=== PATIENT | female | born 1990 | race Hispanic/Latino ===

== ENCOUNTER 2019-02-10 04:09 | Inpatient (IN) | payer BC ==
[2019-02-10] MEDS ORDERED: Ringers Lactate 1,000 ML IV PRN (04:11)
[2019-02-10] MEDS ORDERED: PROMETHAZINE 25 MG/ML VIAL IM PRN (04:11)
[2019-02-10] MEDS ORDERED: METHYLERGONOVINE 0.2MG/ML AMP IM PRN (04:11)
[2019-02-10] MEDS ORDERED: BUTORPHANOL 1 MG/ML INJ IV PRN (04:11)
[2019-02-10] MEDS ORDERED: CARBOPROST TROME 250 MCG/ML IM PRN (04:11)
[2019-02-10] MEDS ORDERED: MEPERIDINE HCL 25 MG/0.5 ML IV PRN (04:11)
[2019-02-10 04:38] VITALS: BMI 34.0
[2019-02-10] MEDS ORDERED: OXYTOCIN/LR 20 UNIT/1,000 ML BAG IV SCH ×2 (05:00→11:00)
[2019-02-10] MEDS ORDERED: Ringers Lactate 1,000 ML IV SCH (05:00)
[2019-02-10 05:07] LABS: Absolute Lymphocytes (CBC) 2.8 K/uL (0.7-4.9); Basophils % 0.6 % (0-1.3); Hematocrit 35.5 % (36.0-45.0); Lymphocytes % 31.6 % (15.3-44.8)
[2019-02-10 05:13] LABS: Urine Appearance CLEAR; Urine Bilirubin NEGATIVE (NEG); Urine Blood NEGATIVE (NEG); Urine Color YELLOW; Urine Glucose NEGATIVE (NEG); Urine Protein NEGATIVE (NEG); Urine Specific Gravity 1.015 (1.005-1.030); Urine pH 7.5 (5.0-7.0)
[2019-02-10 05:42] LABS: Urine Bacteria <20 /HPF (<20); Urine Culture Reflex Order REFLEXED; Urine RBC NONE SEEN /HPF (NONE SEEN)
[2019-02-10] MEDS ORDERED: LIDOCAINE 1% 20 ML MDV ONE (10:10)
[2019-02-10] MEDS ORDERED: ACETAMINOPHEN 500 MG TAB PO PRN (10:42)
[2019-02-10] MEDS ORDERED: BISACODYL 10 MG RECTAL SUPP RECT PRN (10:42)
[2019-02-10] MEDS ORDERED: IBUPROFEN 200 MG TAB PO PRN (10:42)
[2019-02-10] MEDS ORDERED: DIPHENHYDRAMINE 25 MG TAB/CAP PO PRN (10:42)
[2019-02-10] MEDS ORDERED: Oxycodone HCl/Acetaminophen 1 TAB TAB PO PRN ×2 (10:42)
[2019-02-10] MEDS ORDERED: DOCUSATE NA/SENNA CONC 1 TAB PO PRN (10:42)
--- NOTE | 2019-02-10 22:33 | OP ---
Surgeon: Jose Sin MD A 28-year-old, 3, para 1, 39 weeks, 3 cm this morning, quan regularly. Baby at -2 sta tion. Patient went natural. Did receive 1 dose of Stadol during the labor. After achieving 5 to 6 cm, went rapidly to complete second stage of 10 minutes or less. Spontaneous vaginal delivery of a 7 pounds 1 ounce female, Apgars 9 and 9. Two very small first-degree lacerations, 1 on 1 stitch on th e patient's right 3-0 chromic, 2 on the left 3-0 chromic local infiltration. Schultze delivery of th e placenta was inspected and noted to be intact and normal. Minimal blood loss less than 50 mL at th is point. Rh positive, immune to Rubella. Negative beta strep screen. Final Diagnoses: Term intrauterine at 39 weeks. Vaginal delivery. LISSETH/CHAVA Voice ID: [id number] Report ID: [id number]
[2019-02-11 07:33] VITALS: BP 99/54; TEMP 98.5
[2019-02-11 21:50] LABS: RPR (Rapid Plasma Reagin) NON-REACT (NON-REACT)
--- NOTE | 2019-02-13 07:24 | DS ---
Date of Discharge: 02/11/2019 This 28-year-old 3, para 2, at 39 weeks gestation, delivered a 7 pound 1 ounce female, Apgars 9 and 9. Two small first-degree lacerations, 1 requiring dycaqn-gd-lrtck stitch of 3-0 chromic x1, the second one 2 zojbty-ob-cefmx stitches, 3-0 chromic. Schultze delivery of the placenta, which was inspected and noted to be intact and normal. Minimal blood loss, less than 50 cc. Rh positive, imm une to Rubella. Negative beta strep screen. She has had her Tdap immunization. She will be dismiss ed later today, to report back to my office in 6 weeks for followup, to report any temperature elevat ion of 100 degrees or greater, severe pain, heavy bleeding, or any other type of abnormalities. Requ est no analgesics on dismissal. She had 1 temperature elevation at 4 a.m. of 99.5 but temperature th is morning is normal. Her breasts are not engorged. She has no signs of any type of amnionitis or a ny type of problem. She will hydrate. The patient is aware to keep a close watch on her temperatures and report any problems when she is dismissed. LISSETH/CHAVA Voice ID: [id number] Report ID: [id number]
--- NOTE | 2019-02-13 07:33 | PREOPHP ---
Date of Admission: 02/10/2019 This 28-year-old 3, para 2, 39 weeks gestation, 3 cm, but still posterior, 50% effaced, and t he baby is still -1 to -2 station. Cezar very regularly and firmly. Baby is not low enough, q uite yet to rupture membranes. We will check her again in an hour or so. She knows if membranes rup ture spontaneously to tell somebody. We discussed the possibility for cord prolapse should that occu r. The patient is Rh positive, immune to Rubella. Negative beta strep screen. The patient states s he will be going natural although she will request IV analgesics. Anticipate delivery sometime later today. LISSETH/CHAVA Voice ID: [id number]
[2019-02-14 02:54] LABS: HBsAG Nonreactive (Nonreactive)
== END 2019-02-11 12:40 | disposition home or self-care (01) | DRG 807 ==
LOC: 2ND-WC 04:09 → EDSTATUS 22:28
PROVIDERS: ADMIT Specialist; ATTEND Specialist
PROC: 10E0XZZ Delivery of Products of Conception, External Approach (ICD-10-PCS; principal; 2019-02-10)
DX: O70.0 First degree perineal laceration during delivery (principal); Z37.0 Single live birth; Z3A.39 39 weeks gestation of pregnancy
CPT/HCPCS: 36415; 81001; 85025; 86592; 86901; 87086; 87088; 87340; J0595; J2175; J2210; J2550; J2590

== ENCOUNTER 2020-03-30 21:34 | Inpatient (IN) | payer BC ==
[2020-03-30] MEDS ORDERED: Ringers Lactate 1,000 ML IV PRN (22:30)
[2020-03-30] MEDS ORDERED: CEFAZOLIN 2 GM in NA CHLORIDE 0.9% 100 ML IVPB ONE (22:31)
--- NOTE | 2020-03-30 22:39 | P.OBGYNHP ---
Certification for Inpatient With expected LOS: >2 Midnights Practitioner: I am a practitioner with admitting privileges, knowledge of patient current condition, hospital course, and medical plan of care. Services: Services provided to patient in accordance with Admission requirements found in Title 42 Section 412.3 of the Code of Federal Regulations Patient History Date of Service: 03/30/20 Primary Care Provider: Merrick Reason for admission: labor History of Present Illness: 29 year old @ 38w1d by LMP c/w 1st trimester US presents with regular contractions that began at 1830. Contractions were 8 minutes apart and now more regular. Denies vaginal bleeding or leakage of fluid. Good FM. Comps: GDM- patient states held glyburide for last week because BS in good range OBHX: x3 largest 7#11 MHX: Obesity PSHX: Gastric sleeve Tonsillectomy Cholecystectomy Meds: PNV Allergies: Amoxicillin and Demerol --rash (patient states has taken abx in [facility]N family without problems) SHX: denies ETOh/TOb or illicits Allergies amoxicillin [Amoxicillin] Allergy (Intermediate, Verified 04/12/12 12:05) Hives Penicillins Allergy (Intermediate, Verified 04/12/12 12:05) Hives Home medications list reviewed: Yes Home Medications: 95/Iron Fum/Folic/Dha [ + Dha Combo Pack] 1 each PO DAILY 02/10/19 - Past Medical/Surgical History Diabetic: Yes Past Medical History: Reviewed- Non-Contributory -: GB and Tonsils 2007 -: NVD 2009 and 2010 -: Gastric sleeve 2016 - Family History Mother -: Diabetes - Social History Alcohol use: No CD- Drugs: No Caffeine use: No Review of Systems General: Unremarkable Eyes: Unremarkable ENT: Unremarkable Respiratory: Unremarkable Cardiovascular: Unremarkable Gastrointestinal: Abdominal Pain (contractions) Genitourinary: Unremarkable Musculoskeletal: Unremarkable Integumentary: Unremarkable Neurological: Unremarkable Physical Examination - Vital Signs Temperature: 98.0 F Blood Pressure: 121/68 Pulse: 57 Respirations: 18 - General General: Alert and in no apparent distress, Oriented x3 HEENT: Atraumatic, Normocephalic, PERRLA Neck: Supple Respiratory: Clear to auscultation bilaterally, Normal air movement Cardiovascular: No edema, Normal pulses, Regular rate/rhythm Gastrointestinal: No ascites, No tenderness, No massess, No rebound, No guarding Musculoskeletal: No clubbing, No swelling, No contractures, No erythema, No t enderness, No warmth Integumentary: No rashes, No breakdown Neurological: Normal gait - Female Pelvic External genitalia: Normal Vagina: Normal Cervix: Normal Uterus: Non-tender, Gravid Adnexa: Normal - Obstetrics heart rate tracing: Category 1 Contractions: Frequency (q3-4 minutes) Amniotic membrane: Intact Assessment and Plan - Problems (Diagnosis) (1) Normal labor Current Visit: Yes Status: Acute Plan: Admit for labor (2) Gestational diabetes mellitus (GDM) affecting Current Visit: Yes Status: Chronic Plan: Will monitor blood sugars q1hr in active labor (3) GBS (group B Streptococcus carrier), +RV culture, currently Current Visit: Yes Status: Acute Plan: aNCEF ORDERED - Plan 29 YEAR OLD @38W1D IN ACTIVE labor Admit Treat with Ancef (prior ok with PCN family abx) Declines Epidural Consented for a vaginal Discharge Plan: Home Plan to discharge in: 48 Hours - Advance Directives Does patient have a Living Will: No Does patient have a Durable POA for Healthcare: No Physician Review: Patient Assessed, Agree with Above Assessment and Plan Time Spent Managing Pts Care (In Minutes): 60
[2020-03-30] MEDS ORDERED: CEFAZOLIN/SWI 2gm 2 GM/20 ML SYR ONE (22:43)
[2020-03-30] MEDS ORDERED: CEFAZOLIN/SWI 1gm 1 GM/10 ML SYR IV ONE ×2 (22:45)
[2020-03-30] MEDS ORDERED: CEFAZOLIN/SWI 2gm 2 GM/20 ML SYR IVP ONE (22:45)
[2020-03-30] MEDS ORDERED: Ringers Lactate 1,000 ML IV SCH (23:00)
[2020-03-30] MEDS ORDERED: miSOPROStoL 100 MCG TAB PR PRN (23:07)
[2020-03-30] MEDS ORDERED: OXYTOCIN/LR 20 UNIT/1,000 ML BAG IV ONE (23:16)
[2020-03-30 23:17] LABS: Urine Appearance CLEAR; Urine Bilirubin NEGATIVE (NEG); Urine Blood NEGATIVE (NEG); Urine Color YELLOW; Urine Glucose NEGATIVE (NEG); Urine Protein NEGATIVE (NEG); Urine Specific Gravity 1.015 (1.005-1.030); Urine pH 6.5 (5.0-7.0)
[2020-03-30 23:18] LABS: Absolute Lymphocytes (CBC) 2.1 K/uL (0.7-4.9); Basophils % 0.1 % (0-1.3); Hematocrit 30.4 % (36.0-45.0); Lymphocytes % 24.4 % (15.3-44.8); MPV 8.4 fL (7.6-11.3); RBC Red Blood Cell Count 4.06 M/uL (3.86-4.86)
--- NOTE | 2020-03-30 23:35 | P.PN ---
Date of Service: 03/30/20 Patient complaining of painful contractions. Opts for SROM since declines epidural VSS AF FHR: cat 1 toco: q3-4min SVE: /-1 BBOW AROm-clear fluid Anticipate MCS
[2020-03-30] MEDS ORDERED: METHYLERGONOVINE 0.2MG/ML AMP IM ONE (23:36)
[2020-03-30 23:37] LABS: Urine Microscopic Reflex NO UMIC
[2020-03-30] MEDS ORDERED: OXYTOCIN/LR 20 UNIT/1,000 ML BAG IV SCH (23:45)
[2020-03-30] MEDS ORDERED: MEASLES,MUMPS,RUBELLA VAC 0.5ML SQVAC ONE (23:53)
[2020-03-30] MEDS ORDERED: Rho(D) IG (HUMAN) 300 MCG SYR IM PRN (23:53)
[2020-03-30] MEDS ORDERED: ACETAMINOPHEN 500 MG TAB PO PRN (23:53)
[2020-03-30] MEDS ORDERED: IBUPROFEN 200 MG TAB PO PRN (23:53)
[2020-03-30] MEDS ORDERED: Tdap (Diph,Pertuss(Acell),Tet Vac) 0.5 ML SYR IMVAC ONE (23:53)
--- NOTE | 2020-03-30 23:53 | P.OP ---
Cfo: n/a Preoperative diagnosis: 29 year old @38+ weeks in active labor Postoperative diagnosis: same Primary procedure: Physican assisted vaginal delivery Secondary procedure: n/a Anesthesia: None Estimated blood loss: 200 Specimen: cord blood Findings: FTLFC, Apgars 9,9. Weight 7#6 Operative Technique: Patient found to be Fd/100/2. head delivered over an intact perineum. Shoulder and body delivered with ease. Mouth suctioned. Baby to mom's chest. Delayed cord clamping. Placenta delivered intact spontaneously. No tears. 600mcg of cytotec placed DC for prophalxis since multip. No complications. Complications: None Transferred to: Other (Will stay in room for pp care) Condition: Good
[2020-03-30] MEDS ORDERED: LIDOCAINE 1% MPF 30 ML VIAL ONE (23:54)
[2020-03-31 00:54] VITALS: BMI 35.8
[2020-03-31] MEDS ORDERED: INFLUENZA VACCINE (for 3y+) 0.5 ML DOSE IMVAC ONE (10:00)
--- NOTE | 2020-03-31 12:12 | P.PN ---
Subjective Date of Service: 03/31/20 Primary Care Provider: Merrick Chief Complaint: s/p Patient states she is doing well this am. Breast feeding baby girl well. Moderate lochia. Ambulating and voiding with ease. Tolerating regular diet. Minimal pain. no sob or CP. Review of Systems General: Unremarkable Eyes: Unremarkable ENT: Unremarkable Respiratory: Unremarkable Cardiovascular: Unremarkable Gastrointestinal: Abdominal Pain (mild cramps) Genitourinary: Other (moderate lochia), Unremarkable Musculoskeletal: Unremarkable Integumentary: Unremarkable Neurological: Unremarkable Lymphatics: Unremarkable Physical Examination - Vital Signs Temperature: 98.6 F Blood Pressure: 113/68 Pulse: 68 Respirations: 18 - Physical Exam General: Alert, In no apparent distress HEENT: Atraumatic, Normocephalic Neck: Supple Respiratory: Clear to auscultation bilaterally Cardiovascular: No edema, Regular rate/rhythm Gastrointestinal: Soft and benign, No tenderness, Other (ff@umb) Musculoskeletal: No clubbing, No swelling Integumentary: No rashes, No breakdown Neurological: Normal gait - Studies Laboratory Data (last 24 hrs) 03/30/20 22:49: WBC 8.6, Hgb 9.9 L, Hct 30.4 L, Plt Count 310 Assessment And Plan - Current Problems (Diagnosis) (1) (spontaneous vaginal delivery) Current Visit: Yes Status: Acute Plan: Will continue routine pp care - Plan 29 year old s/p Pt doing well. Will continue routine pp care MCS Physician Review: Patient Assessed, Agree with Above Assessment and Plan Time Spent Managing PTS Care (In Minutes): 25
[2020-03-31] MEDS ORDERED: Tdap (Diph,Pertuss(Acell),Tet Vac) 0.5 ML SYR IMVAC ONE (15:54)
[2020-04-01 03:54] LABS: RPR (Rapid Plasma Reagin) NON-REACT (NON-REACT)
[2020-04-01 09:12] VITALS: BP 122/69; TEMP 98.6
--- NOTE | 2020-04-02 01:18 | DS ---
Date of Discharge: 04/01/2020 Hospital Course: Elizabeth Bermudez is a 29-year-old 4, para 3, 38 weeks 5 days, sc heduled for induction either today or tomorrow, sometime this week, came in active labor, delivered s pontaneously a term , good Apgars. No episiotomy. No lacerations. Minimal blood loss. The p atient is Rh positive, immune to Rubella. Positive strep status. She did receive 1 dose of antibiot ic. Baby is doing well. Apparently, baby has been dismissed. The patient will come back to my offi ce in 6 weeks for followup to report any temperature elevation of 100 degrees or greater, severe pain , heavy bleeding, or any other type of abnormalities. Requests no analgesics on dismissal. Final Diagnoses: Term intrauterine , spontaneous vaginal delivery. LISSETH/CHAVA Voice ID: [id number] Report ID: [id number]
[2020-04-03 19:57] LABS: HBsAG Nonreactive (Nonreactive)
== END 2020-04-01 09:30 | disposition home or self-care (01) | DRG 806 ==
LOC: L&D 21:34 → 2ND-WC 21:55
PROVIDERS: ADMIT Obstetrics & Gynecology; ATTEND Obstetrics & Gynecology
PROC: 10E0XZZ Delivery of Products of Conception, External Approach (ICD-10-PCS; principal; 2020-03-30)
PROC: 3E0234Z Introduction of Serum, Toxoid and Vaccine into Muscle, Percutaneous Approach (ICD-10-PCS; 2020-03-31)
PROC: 3E02340 Introduction of Influenza Vaccine into Muscle, Percutaneous Approach (ICD-10-PCS; 2020-03-31)
DX: O24.429 Gestational diabetes mellitus in childbirth, unspecified control (principal); O98.82 Other maternal infectious and parasitic diseases complicating childbirth; Z37.0 Single live birth; Z3A.38 38 weeks gestation of pregnancy; B95.1 Streptococcus, group B, as the cause of diseases classified elsewhere; Z20.828 Contact with and (suspected) exposure to other viral communicable diseases; Z23 Encounter for immunization
CPT/HCPCS: 36415; 81003; 85025; 86592; 87340; 90471; 90715; J0690; J2210; J2590; J7120; Q2035; U0003